=== PATIENT | female | born 1965 | race Caucasian/White ===

== ENCOUNTER 2018-09-27 20:30 | Emergency (ER) | payer MEDICARE, MEDICAID ==
--- NOTE | 2018-09-27 21:08 | ER Report ---
History and Physical Time Seen By MD: 21:04 Hx. of Stated Complaint: CP THAT STARTED AT 1930 WHILE AT REST HPI/ROS CHIEF COMPLAINT: Chest pain HISTORY OF PRESENT ILLNESS: 52-year-old female with a history of chronic systo lic congestive heart failure followed by cardiology in [facility]. Patient was traveling from [place] back to her home in [place] when she developed chest pain while driving at 1930. She continues to drive for an hour and a half of chest pain as a became more intense. She became diaphoretic, nauseous mildly short of breath. She describes a deep ache in her chest. She is followed by Dr. Maci Azul at the heart failure clinic in [place] [phone] REVIEW OF SYSTEMS: Respiratory: No cough, Cardiovascular: As above Gastrointestinal: No vomiting, no abdominal pain. Musculoskeletal: No back pain. Allergies: Coded Allergies: ciprofloxacin (Verified Allergy, Unknown, 09/27/18) promethazine (Verified Allergy, Unknown, 09/27/18) Home Meds Reported Medications Bisoprolol Fumarate (BISOPROLOL FUMARATE) 10 Mg Tablet, 10 MG PO QDAY, #10 TAB 09/27/18 Atorvastatin (LIPITOR) 80 Mg Tab, 1 TAB PO QDAY, TAB 09/27/18 Furosemide (FUROSEMIDE) 40 Mg Tablet, 1 TAB PO Q8H, TAB 09/27/18 Prednisone (PREDNISONE) 50 Mg Tablet, 10 MG PO BID 09/27/18 Losartan Potassium (LOSARTAN POTASSIUM) 50 Mg Tablet, 50 MG PO QDAY 09/27/18 Past Medical/Surgical History Hyperlipidemia, systolic heart failure Reviewed Nurses Notes: Yes Old Medical Records Reviewed: Yes Constitutional Vital Sign - Last 24 Hours 09/27/18 09/27/18 09/27/18 09/27/18 21:00 21:04 21:15 21:16 Temp 97.7 Pulse 125 125 127 Resp 16 24 13 B/P (MAP) 138/93 (108) 138/93 Pulse Ox 85 92 93 O2 Delivery Room Air O2 Flow Rate 3.0 09/27/18 09/27/18 09/27/18 09/27/18 21:30 21:45 22:00 22:05 Pulse 122 124 121 121 Resp 0 37 23 14 B/P (MAP) 137/83 (101) 122/78 (93) Pulse Ox 94 96 94 94 09/27/18 09/27/18 09/27/18 09/27/18 22:20 22:26 22:30 22:35 Pulse 118 121 Resp 15 12 B/P (MAP) 115/85 (95) 113/80 (91) 106/84 (91) 114/78 (90) Pulse Ox 88 96 09/27/18 09/27/18 09/27/18 09/27/18 22:40 22:45 22:50 22:55 Pulse 117 Resp 25 B/P (MAP) 110/78 (89) 109/73 (85) 113/78 (90) 115/75 (88) Pulse Ox 96 09/27/18 09/27/18 09/27/18 09/27/18 23:00 23:05 23:10 23:15 Pulse 117 Resp 28 B/P (MAP) 115/72 (86) 114/70 (85) 113/77 (89) 109/71 (84) Pulse Ox 95 09/27/18 09/27/18 09/27/18 09/27/18 23:20 23:25 23:30 23:35 Pulse 119 121 Resp 12 20 B/P (MAP) 108/83 (91) 113/78 (90) 112/74 (87) 96/77 (83) Pulse Ox 92 90 09/27/18 09/27/18 09/27/18 09/27/18 23:40 23:45 23:50 23:55 Pulse 119 Resp 29 B/P (MAP) 106/73 (84) 109/72 (84) 119/71 (87) 107/71 (83) Pulse Ox 91 09/28/18 09/28/18 09/28/18 09/28/18 00:00 00:05 00:10 00:15 Pulse 121 121 Resp 31 32 B/P (MAP) 112/77 (89) 113/67 (82) 98/75 (83) 105/73 (84) Pulse Ox 90 92 09/28/18 09/28/18 09/28/18 09/28/18 00:20 00:25 00:30 00:35 Pulse 114 Resp 18 B/P (MAP) 106/76 (86) 105/77 (86) 90/64 (73) 107/69 (82) Pulse Ox 89 7/28/19 09/28/18 09/28/18 09/28/18 00:40 00:45 00:50 00:55 B/P (MAP) 104/81 (89) 111/65 (80) 107/93 (98) 115/74 (88) 09/28/18 09/28/18 09/28/18 09/28/18 01:15 01:30 01:45 01:50 Pulse 120 122 122 123 Resp 19 18 17 19 B/P (MAP) 97/75 (82) 100/67 (78) Pulse Ox 89 99 100 100 09/28/18 09/28/18 09/28/18 09/28/18 02:00 02:05 02:15 02:20 Pulse 123 121 Resp 37 16 B/P (MAP) 106/74 (85) 99/57 (71) Pulse Ox 94 09/28/18 02:29 B/P (MAP) 110/75 (87) Physical Exam Vital signs stable, afebrile, pulse ox normal General Appearance: The patient is alert, has no immediate need for airway protection and no current signs of toxicity. Slightly pale appearing, skin warm and dry, moderate distress HEENT: Pupils equal and round no injection. Oropharynx without redness or exudate, mucous. Membranes are moist Respiratory: Chest is non tender, lungs are clear to auscultation. No chest wall tenderness Cardiac: regular rate and rhythm, no murmur Gastrointestinal: Abdomen is soft and non tender, no masses, bowel sounds normal. Musculoskeletal: Neck: Neck is supple and non tender. Extremities have full range of motion and are non tender. No edema, no calf tenderness Skin: No rashes or lesions. DIFFERENTIAL DIAGNOSIS: After history and physical exam differential diagnosis was considered for chest pain including but not limited to myocardial ischemia, pericarditis pulmonary embolus, chest wall pain, pleural inflammation and p ulmonary infectious causes. Medical Decision Making Data Points Result Diagram: 09/27/18210009/27/182100 Laboratory Hematology Test 09/27/18 21:01 White Blood Count 10.8 k/uL (4.5-11.0) Red Blood Count 5.28 M/uL (4.17-5.56) Hemoglobin 16.2 g/dL (12.0-16.0) H Hematocrit 48.1 % (34.0-47.0) H Mean Corpuscular Volume 91.0 fL (80.0-96.0) Mean Corpuscular Hemoglobin 30.7 pg (26.0-33.0) Mean Corpuscular Hemoglobin Concent 33.8 g/dL (32.0-36.0) Red Cell Distribution Width 14.2 % (11.5-14.5) Platelet Count 169 K/uL (150-450) Mean Platelet Volume 12.3 fL (7.2-11.1) H Neutrophils (%) (Auto) 69.6 % (39.4-72.5) Lymphocytes (%) (Auto) 19.3 % (17.6-49.6) Monocytes (%) (Auto) 8.5 % (4.1-12.4) Eosinophils (%) (Auto) 1.9 % (0.4-6.7) Basophils (%) (Auto) 0.7 % (0.3-1.4) Nucleated RBC Relative Count (auto) 0.0 /100WBC Neutrophils # (Auto) 7.5 K/uL (2.0-7.4) H Lymphocytes # (Auto) 2.1 K/uL (1.3-3.6) Monocytes # (Auto) 0.9 K/uL (0.3-1.0) Eosinophils # (Auto) 0.2 K/uL (0.0-0.5) Basophils # (Auto) 0.1 K/uL (0.0-0.1) Nucleated RBC Absolute Count (auto) 0.01 K/uL Chemistry Test 09/27/18 21:01 09/28/18 00:02 Sodium Level 141 mmol/L (137-145) Potassium Level 3.3 mmol/L (3.5-5.0) Chloride Level 96 mmol/L (98-107) Carbon Dioxide Level 33 mmol/L (22-31) Blood Urea Nitrogen 21 mg/dl (7-18) Creatinine 0.90 mg/dl (0.52-1.04) Glomerular Filtration Rate Calc > 60.0 Random Glucose 162 mg/dl (75-110) Calcium Level 9.2 mg/dl (8.4-10.2) Total Bilirubin 0.6 mg/dl (0.2-1.3) Aspartate Amino Transf (AST/SGOT) 34 U/L (0-35) Alanine Aminotransferase (ALT/SGPT) 29 U/L (0-56) Alkaline Phosphatase 91 U/L (0-126) B-Type Natriuretic Peptide 429 pg/ml (0-100) Total Protein 8.2 g/dl (6.3-8.2) Albumin 4.6 g/dl (3.5-5.0) Troponin I 0.433 ng/ml Coagulation Test 09/27/18 21:01 Prothrombin Time 13.0 seconds (12.0-14.4) Prothromb Time International Ratio 0.98 Activated Partial Thromboplast Time 31 seconds (23-35) D-Dimer Quantitative (PE/DVT) 0.29 ug/ml (0-0.50) EKG/Imaging EKG Interpretation 12 lead EK Rhythm: Sinus tachycardia, rate 127 bpm [place]: normal QRS: Wide QRS consistent with left ventricular hypertrophy with repolarization abnormality ST segments: Nonspecific ST and T-wave repolarization changes, no old EKGs for comparison 12 lead EKG: Repeat EKG at 3 hours Rhythm: Sinus tachycardia, rate 120 [place]: Left axis deviation QRS: LVH with repolarization of normality ST segments:, No change compared to previous EKG 3 hours earlier Imaging X-ray: Single view chest x-ray was obtained. I viewed the images myself on the PACS system. My interpretation of the images is: No infiltrate, no effusion, normal mediastinum. The radiologist interpretation had no clinically significant variation from this interpretation. ED Course/Re-evaluation Clinical Indication for ER IV: IV Access ED Course Patient was admitted to an examination room. H&P was done. The differential diagnoses was considered. Patient with boring deep chest pain worrisome for cardiac etiology. She does have associated symptoms. She does have a history of systolic heart failure. Her initial EKG shows LVH with repolarization. There is no obvious ischemic changes noted. She's medicated with fentanyl and Zofran as well as aspirin. Her initial troponin returns in the indeterminate range at 0.071. She continues to have pain. She is treated with nitroglycerin 1 inch topically and morphine 4 mg. She's placed on supplemental O2. Repeat troponin at 3 hours shows elevation to 0.433 and the definite ischemic range. Repeat EKG shows no changes. 09/28/2018 1:16:53 am case discussed with Dr. Lavelle Hawley project construction assistant manager on-call at [facility]. He would like the patient sent to the hospitalist service. 09/28/2018 1:29:09 am case was discussed with Dr. Shah hospitalist at [facility] Decision to Disposition Date: Sep 27, 2018 Decision to Disposition Time: 23:13 Critical Care Time I spent a total of 60 minutes of critical care time in obtaining history, perfo rming a physical exam, bedside monitoring of interventions, collecting and interpreting tests and discussion with consultants but not including time spent performing procedures. Depart Departure Latest Vital Signs Vital Signs Date Time Temp Pulse Resp B/P (MAP) Pulse Ox O2 Delivery O2 Flow Rate FiO2 09/28/18 02:29 110/75 (87) 09/28/18 02:20 121 16 94 09/27/18 21:16 3.0 09/27/18 21:04 97.7 Room Air Impression: Primary Impression: Non-STEMI (non-ST elevated myocardial infarction) Additional Impressions: Troponin level elevated Hyperlipidemia Systolic heart failure Condition: Improved Disposition: XFER TO [facility]UTE [facility]ARE [facility] Problem Qualifiers Additional Impressions: Hyperlipidemia Hyperlipidemia type: unspecified Qualified Codes: E78.5 - Hyperlipidemia, unspecified Systolic heart failure Heart failure chronicity: chronic Qualified Codes: I50.22 - Chronic systolic (congestive) heart failure GEORGINA BECKMAN DO Sep 27, 2018 21:08
[2018-09-27] MEDS ORDERED: BISO10TA16 PO (21:09)
[2018-09-27] MEDS ORDERED: PRED50TA22 PO (21:09)
[2018-09-27] MEDS ORDERED: FURO-47 PO (21:09)
[2018-09-27] MEDS ORDERED: ATR80PT PO (21:09)
[2018-09-27] MEDS ORDERED: LOSA50TA80 PO (21:09)
[2018-09-27] MEDS ORDERED: NS(*) 0.9% 1000 ML BAG 1,000 ML IV ONE (21:14)
[2018-09-27] MEDS ORDERED: fentaNYL CITR 100 MCG/2 ML AMP IVP ONE (21:15)
[2018-09-27] MEDS ORDERED: ASPIRIN 81 MG CHEW PO ONE (21:15)
[2018-09-27] MEDS ORDERED: ONDANSETRON 4 MG/2 ML VIAL IVP ONE (21:15)
[2018-09-27] MEDS ORDERED: LIDOCAINE 2% VISC SLN 15ML UDC PO ONE (21:20)
[2018-09-27] MEDS ORDERED: MAG HYD/AL HYD/SIMETH 30ML UDC PO ONE (21:20)
[2018-09-27 21:28] LABS: PLATELET COUNT, AUTOMATED 169 K/uL (150-450)
[2018-09-27 21:32] LABS: INR 0.98
[2018-09-27] MEDS ORDERED: NITROGLYCERIN OINT 1 GM PKT TP ONE (22:15)
[2018-09-27] MEDS ORDERED: MORPHINE 4 MG/ML SDV IVP ONE (22:15)
--- NOTE | 2018-09-27 22:22 | RADIOLOGY IMAGING REPORT ---
FACILITY: [facility] [place] PATIENT NAME: Alissa Ahumada : 1965 MR: [id number] V: [id number] EXAM DATE: ORDERING PHYSICIAN: GEORGINA BECKMAN TECHNOLOGIST: Location: [facility] Patient: Alissa Ahumada : 1965 Visit/Account:[id number] Date of Sevice: 09/27/2018 EXAMINATION: Portable AP Chest HISTORY: Chest pain. COMPARISON: None. FINDINGS: The lungs are clear. No focal consolidation or pleural effusion. No pneumothorax. Normal cardiomedi astinal silhouette, with normal heart size and pulmonary vascularity. Visualized osseous structures are unremarkable. IMPRESSION: No evidence of acute cardiopulmonary disease. Report Dictated By: He Rosales MD at 09/27/2018 10:15 PM Report E-Signed By: He Rosales MD at 09/27/2018 10:15 PM WSN:[id number]
--- NOTE | 2018-09-27 23:20 | EKG ---
FACILITY: [facility] [place] PATIENT NAME: CRIS ROGERS : [id number] MR: [id number] V: [id number] EXAM DATE: ORDERING PHYSICIAN: GEORGINA BECKMAN TECHNOLOGIST: JAEL Moore Reason : CP Blood Pressure : / mmHG Vent. Rate : 127 BPM Atrial Rate : 127 BPM P-R Int : 114 ms QRS Dur : 168 ms QT Int : 324 ms P-R-T Axes : 080 -09 163 degrees QTc Int : 470 ms Sinus tachycardia Left ventricular hypertrophy with QRS widening and repolarization abnormality Abnormal ECG No previous ECGs available Confirmed by LC GOMEZ ([id number]) on 09/28/2018 6:32:16 AM Referred By: Confirmed By:LC GOMEZ
[2018-09-28] MEDS ORDERED: HEPARIN* SOD/D5W 25000 U/500ML 500 ML IV ONE (01:02)
[2018-09-28] MEDS ORDERED: HEPARIN (PORC) 5000 UN/ML VIAL IVP ONE (01:05)
[2018-09-28] MEDS ORDERED: HEPARIN SOD/D5W 25000/250 ML 250 ML IV ONE (01:19)
--- NOTE | 2018-09-28 02:28 | EKG ---
[place] [facility] [place] PATIENT NAME: CRIS ROGERS : [id number] MR: [id number] V: [id number] EXAM DATE: ORDERING PHYSICIAN: GEORGINA BECKMAN TECHNOLOGIST: JAEL Moore Reason : REPEAT EKG Blood Pressure : / mmHG Vent. Rate : 123 BPM Atrial Rate : 123 BPM P-R Int : 118 ms QRS Dur : 168 ms QT Int : 368 ms P-R-T Axes : 075 -12 189 degrees QTc Int : 526 ms Sinus tachycardia Left ventricular hypertrophy with QRS widening and repolarization abnormality Abnormal ECG When compared with ECG of 27-SEP-2018 21:00, T wave inversion more evident in Lateral leads Confirmed by LC GOMEZ ([id number]) on 09/28/2018 6:34:08 AM Referred By: Confirmed By:LC GOMEZ
[2018-09-28 02:29] VITALS: BP 110/75
== END 2018-09-28 02:40 | disposition short-term general hospital (02) ==
LOC: ER 21:33
DX: I21.4 Non-ST elevation (NSTEMI) myocardial infarction (principal); E78.5 Hyperlipidemia, unspecified; I50.22 Chronic systolic (congestive) heart failure; R79.89 Other specified abnormal findings of blood chemistry
CPT/HCPCS: 36415; 71045; 83880; 84484; 85025; 85379; 85610; 85730; 93005; 96361; 96365; 96375; 99285; A9270; J1644; J2270; J2405; J3010; J7030; 82040; 82247; 82310; 82374; 82435; 82565; 82947; 84075; 84132; 84155; 84295; 84450; 84460; 84520; 99291

== ENCOUNTER → 2018-09-28 | Outpatient (CLI) | payer MEDICARE, MEDICAID ==
[~2018-09-28] MED LIST: ATR80PT PO; BISO10TA16 PO; FURO-47 PO; LOSA50TA80 PO; PRED50TA22 PO
== END ==
LOC: AMB 02:17
PROVIDERS: ATTEND Nurse Practitioner
DX: I21.4 Non-ST elevation (NSTEMI) myocardial infarction (principal)
CPT/HCPCS: A0425; A0426; A0888